=== PATIENT | male | born 1990 | race Hispanic/Latino ===

== ENCOUNTER → 2025-01-05 | Day surgery (SDC) | payer OTHER ==
[~2025-01-05] MED LIST: ACETAMINOPHEN 1000 MG/100 ML 100 ML IV ONE; ARIMIDEX1 MG PO; DEXAMETHASONE SOD PHOS INJ 4 MG/ML SDV ONE; FENTANYL CITRATE/PF 100MCG/2 ML INJ ONE; GLYCOPYRROLATE INJ 0.2 MG/ML VIAL ONE; LIDOCAINE HCL 2% LOCAL INJ 5 ML SDV VIAL INJ ONE; MULTI-VITAMIN1 EACH PO; ONDANSETRON HCL INJ 2MG/ML 2ML 2 MG/ML VIAL ONE; PROPOFOL IV EMULSION 10 MG/ML 20 ML VIAL ONE; ROCURONIUM BROMIDE 1 ML IV ONE; SUCCINYLCHOLINE CHLORIDE 20 MG/ML 10ML VIAL ONE
[2025-01-05] MEDS: LACTATED RINGER'S 1,000 ML ONE (07:43)
[2025-01-05 11:43] VITALS: BP 133/87; PULSE 68; RESP 17; O2SAT 98
== END | disposition home or self-care (01) ==
LOC: OR 07:08
PROVIDERS: ATTEND Otolaryngology Otolaryngology/Facial Plastic Surgery
DX: J34.2 Deviated nasal septum (principal); J34.89 Other specified disorders of nose and nasal sinuses; K21.9 Gastro-esophageal reflux disease without esophagitis; Z79.899 Other long term (current) drug therapy
CPT/HCPCS: 30520; 88305; 88311; J0131; J0330; J1100; J2003; J2405; J2704; J3010; J7121; 88300